=== PATIENT | male | born 1980 | race Caucasian/White ===

== ENCOUNTER 2016-06-21 06:01 | Emergency (ER) | payer OTHER ==
[2016-06-21 06:24] LABS: HEMOGLOBIN 13.9 gm/dl (14.0-17.5); RED BLOOD COUNT 4.58 M/UL (4.20-5.50); WHITE BLOOD COUNT 11.4 K/UL (4.5-11.0)
[2016-06-21 06:42] LABS: BUN/CREATININE RATIO 23 (0-10)
== END 2016-06-21 12:10 | disposition home or self-care (01) ==
LOC: ER1 06:01
PROVIDERS: Family Medicine
DX: F15.10 Other stimulant abuse, uncomplicated (principal); F17.200 Nicotine dependence, unspecified, uncomplicated
CPT/HCPCS: 36415; 71010; 80053; 80307; 81001; 85025; 99285; G0480